=== PATIENT | male | born 1990 ===

== ENCOUNTER → 2017-09-14 | Outpatient (CLI) | payer OTHER | LOC: BMCIMAGING 16:32 | PROVIDERS: ATTEND Family Medicine | DX: S92.352A Displaced fracture of fifth metatarsal bone, left foot, initial encounter for closed fracture (principal); S91.312A Laceration without foreign body, left foot, initial encounter; W17.89XA Other fall from one level to another, initial encounter; Y93.31 Activity, mountain climbing, rock climbing and wall climbing ==